=== PATIENT | female | born 1950 | race Two or more races ===

== ENCOUNTER 2018-11-19 08:39 | Inpatient (IN) | payer OTHER ==
[2018-11-19 09:41] VITALS: BMI 37.0
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
[2018-11-19] MEDS ORDERED: METHOCARBAMOL 500 MG TABLET PO PRN (10:21)
[2018-11-19] MEDS ORDERED: hydrOXYzine PAMOATE 25 MG CAPSULE (FP) PO PRN (10:21)
[2018-11-19] MEDS ORDERED: MELATONIN 5 MG TABLETS PO PRN (10:21)
[2018-11-19] MEDS ORDERED: IBUPROFEN 400 MG TABLET (FP) PO PRN (10:21)
[2018-11-19] MEDS ORDERED: MAGNESIUM CITRATE 300 ML BOTTLE PO PRN (10:21)
[2018-11-19] MEDS ORDERED: ACETAMINOPHEN 325 MG TABLET (FP) PO PRN ×2 (10:21)
[2018-11-19] MEDS ORDERED: chlordiazePOXIDE HCL 25 MG CAPSULE PO PRN (10:21)
[2018-11-19] MEDS ORDERED: MAG HYDROX/AL HYDROX/SIMETH 30 ML UNIT-DOSE CUP PO PRN (10:21)
[2018-11-19] MEDS ORDERED: MENTHOL/PHENOL 1 EACH UD MM PRN (10:21)
[2018-11-19] MEDS ORDERED: ONDANSETRON *ODT* 4 MG TABLET SL PRN (10:21)
[2018-11-19] MEDS ORDERED: BISMUTH SUBSALICYLATE 524 MG/30 ML UD PO PRN (10:21)
[2018-11-19] MEDS ORDERED: MAGNESIUM HYDROX 2400MG/30ML ORAL SUSPENSION 30 ML CUP PO PRN (10:21)
[2018-11-19] MEDS ORDERED: chlordiazePOXIDE HCL 25 MG CAPSULE PO ONE (13:15)
[2018-11-19] MEDS: NICOTINE 21 MG/24 HOURS TOPICAL PATCH TD SCH (13:38)
[2018-11-19] MEDS: BUDESONIDE/FORMETEROL FUMARATE 80/4.5 mcg INHALER IH SCH ×2 (13:39→23:14)
[2018-11-19] MEDS: LIDOCAINE 5% TOPICAL PATCH TP SCH (13:44)
[2018-11-19] MEDS ORDERED: cloNIDine HCL 0.1 MG TABLET PO ONE (14:14)
[2018-11-19 14:20] LABS: HEMATOCRIT 49.7 % (32.4-45.2); HEMOGLOBIN 16.3 GM/dL (10.7-15.3); MCH 28.3 pg (25.7-33.7); MCHC 32.7 g/dl (32.0-36.0); MEAN CELL VOLUME 86.6 fl (80-96); MEAN PLT VOLUME 8.8 fl (7.5-11.1); PLATELET COUNT 200 K/MM3 (134-434); RBC 5.74 M/mm3 (3.60-5.2); RDW 16.1 % (11.6-15.6); WHITE BLOOD COUNT 7.7 K/mm3 (4.0-10.0)
[2018-11-19 14:39] LABS: ALBUMIN 3.6 g/dl (3.4-5.0); BILIRUBIN,TOTAL 3.2 mg/dL (0.2-1); BLOOD UREA NITROGEN 6.9 mg/dL (7-18); CALCIUM 8.8 mg/dL (8.5-10.1)
[2018-11-19] MEDS: chlordiazePOXIDE HCL 25 MG CAPSULE PO SCH ×2 (17:38→22:53)
[2018-11-19] MEDS: THIAMINE HCL 100 MG TABLET (FP) PO SCH (22:53)
[2018-11-19] MEDS: LIDOCAINE PATCH REMOVAL MC SCH (23:14)
[2018-11-20] MEDS: chlordiazePOXIDE HCL 25 MG CAPSULE PO SCH ×4 (06:08→22:28)
[2018-11-20] MEDS: LIDOCAINE 5% TOPICAL PATCH TP SCH (10:56)
[2018-11-20] MEDS: BUDESONIDE/FORMETEROL FUMARATE 80/4.5 mcg INHALER IH SCH ×2 (10:57→22:31)
[2018-11-20] MEDS: PRENATAL VITAMINS W/ FOLIC ACID TABLET (FP) PO SCH (10:57)
[2018-11-20] MEDS: LISINOPRIL 5 MG TABLET (FP) PO SCH (10:57)
[2018-11-20] MEDS: NICOTINE 21 MG/24 HOURS TOPICAL PATCH TD SCH (10:57)
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
[2018-11-20] MEDS ORDERED: PARoxetine HCL 30 MG TABLET PO SCH (12:45)
[2018-11-20] MEDS ORDERED: hydrOXYzine PAMOATE 50 MG CAPSULE (FP) PO PRN (12:46)
--- NOTE | 2018-11-20 17:13 | PN ---
[facility] CIWA - CIWA Score Nausea/Vomitin-Mild Nausea/No Vomiting Muscle Tremors: 4-Moderate,w/Arms Extend Anxiety: 4-Mod. Anxious/Guarded Agitation: 3 Paroxysmal Sweats: 3 Orientation: 0-Oriented Tacttile Disturbances: 0-None Auditory Disturbances: 0-None Visual Disturbances: 0-None Headache: 0-None Present CIWA-Ar Total Score: 15 S Progress Note (SOAP) Subjective: Refused to speak with financial writer Objective: 11/20/18 17:09 Last Vital Signs Temp Pulse Resp BP Pulse Ox 97.7 F 90 18 161/96 11/20/18 16:59 11/20/18 16:59 11/20/18 16:59 11/20/18 16:59 Elevated b/p (has htn, on medication) Laboratory Tests 11/19/18 11/19/18 11/19/18 10:30 10:30 10:30 WBC RBC Hgb Hct MCV MCH MCHC RDW Plt Count MPV Sickle Cell Screen Negative Sodium 138 Potassium 3.0 L Chloride 97 L Carbon Dioxide 34 H Anion Gap 7 L BUN 6.9 L Creatinine 1.0 Est GFR (CKD-EPI)AfAm 67.99 Est GFR (CKD-EPI)NonAf 58.66 Random Glucose 133 H Calcium 8.8 Total Bilirubin 3.2 H AST 31 ALT 23 Alkaline Phosphatase 121 H Total Protein 7.0 Albumin 3.6 RPR Titer Nonreactive 11/19/18 10:35 WBC 7.7 RBC 5.74 H Hgb 16.3 H Hct 49.7 H MCV 86.6 MCH 28.3 MCHC 32.7 RDW 16.1 H Plt Count 200 MPV 8.8 Sickle Cell Screen Sodium Potassium Chloride Carbon Dioxide Anion Gap BUN Creatinine Est GFR (CKD-EPI)AfAm Est GFR (CKD-EPI)NonAf Random Glucose Calcium Total Bilirubin AST ALT Alkaline Phosphatase Total Protein Albumin RPR Titer Labs reviewed: K 3, serum gluc 133, total bili 3.2 (high), alk phos 121 ( elevated), CBC abnormal (RBC, H/H all high) Assessment: 11/20/18 17:12 Withdrawal sxs Noted with hypokalemia, hyperglycemia, elevated LFTs (total bilirubin and alk phos) and abnormal CBC Plan: Continue detox Encouraged PO water intake Hypokalemia: start K Dur 40 Meq PO x 2 doses (at least 4 hours apart then 20 Meq PO daily, repeat serum K level in AM) Hyperglycemia: repeat fasting glucose, send A1c Elevated LFTs (total bilirubin and alk phos): repeat total bilirubin and alk phos Abnormal CBC: repeat CBC
--- NOTE | 2018-11-20 17:16 | EKG ---
Test Reason : Blood Pressure : / mmHG Vent. Rate : 087 BPM Atrial Rate : 087 BPM P-R Int : 132 ms QRS Dur : 098 ms QT Int : 390 ms P-R-T Axes : -22 068 048 degrees QTc Int : 469 ms NORMAL SINUS RHYTHM NORMAL ECG NO PREVIOUS ECGS AVAILABLE Confirmed by LEEANN PEOPLES MD ([id number]) on 11/20/2018 5:16:19 PM Referred By: Confirmed By:LEEANN PEOPLES MD
[2018-11-20] MEDS ORDERED: POTASSIUM CHLORIDE TABS 20 MEQ TABLET.ER (FP) PO ONE ×2 (17:17→23:00)
[2018-11-20] MEDS: PARoxetine HCL 20 MG TABLET PO SCH (22:28)
[2018-11-20] MEDS: THIAMINE HCL 100 MG TABLET (FP) PO SCH (22:29)
[2018-11-20] MEDS: LIDOCAINE PATCH REMOVAL MC SCH (22:31)
[2018-11-21] MEDS: SUVOREXANT 10 MG TABLET PO PRN ×2 (01:12→22:17)
[2018-11-21] MEDS: chlordiazePOXIDE HCL 25 MG CAPSULE PO SCH ×4 (06:41→22:17)
[2018-11-21] MEDS: NICOTINE 21 MG/24 HOURS TOPICAL PATCH TD SCH (10:57)
[2018-11-21] MEDS: LISINOPRIL 5 MG TABLET (FP) PO SCH (10:58)
[2018-11-21] MEDS: POTASSIUM CHLORIDE TABS 20 MEQ TABLET.ER (FP) PO SCH (10:58)
[2018-11-21] MEDS: BUDESONIDE/FORMETEROL FUMARATE 80/4.5 mcg INHALER IH SCH ×2 (10:58→22:19)
[2018-11-21] MEDS: PRENATAL VITAMINS W/ FOLIC ACID TABLET (FP) PO SCH (10:58)
[2018-11-21] MEDS: LIDOCAINE 5% TOPICAL PATCH TP SCH (11:02)
--- NOTE | 2018-11-21 12:32 | PN ---
S CIWA - CIWA Score Nausea/Vomitin-No Nausea/No Vomiting Muscle Tremors: 4-Moderate,w/Arms Extend Anxiety: 3 Agitation: 3 Paroxysmal Sweats: 3 Orientation: 0-Oriented Tacttile Disturbances: 0-None Auditory Disturbances: 0-None Visual Disturbances: 0-None Headache: 0-None Present CIWA-Ar Total Score: 13 [facility] Progress Note (SOAP) Subjective: sweats irritable tired Objective: 11/21/18 12:31 Vital Signs Temperature 97.5 F L 11/21/18 09:45 Pulse Rate 72 11/21/18 09:45 Respiratory Rate 18 11/21/18 09:45 Blood Pressure 139/78 11/21/18 09:45 O2 Sat by Pulse Oximetry (%) Laboratory Tests 11/19/18 11/19/18 11/19/18 10:30 10:30 10:30 WBC RBC Hgb Hct MCV MCH MCHC RDW Plt Count MPV Sickle Cell Screen Negative Sodium 138 Potassium 3.0 L Chloride 97 L Carbon Dioxide 34 H Anion Gap 7 L BUN 6.9 L Creatinine 1.0 Est GFR (CKD-EPI)AfAm 67.99 Est GFR (CKD-EPI)NonAf 58.66 Random Glucose 133 H Calcium 8.8 Total Bilirubin 3.2 H AST 31 ALT 23 Alkaline Phosphatase 121 H Total Protein 7.0 Albumin 3.6 RPR Titer Nonreactive 11/19/18 10:35 WBC 7.7 RBC 5.74 H Hgb 16.3 H Hct 49.7 H MCV 86.6 MCH 28.3 MCHC 32.7 RDW 16.1 H Plt Count 200 MPV 8.8 Sickle Cell Screen Sodium Potassium Chloride Carbon Dioxide Anion Gap BUN Creatinine Est GFR (CKD-EPI)AfAm Est GFR (CKD-EPI)NonAf Random Glucose Calcium Total Bilirubin AST ALT Alkaline Phosphatase Total Protein Albumin RPR Titer repeated labs pending aaox3 ambulating no acute distress Assessment: 11/21/18 12:32 withdrawal sx Plan: continue detox increase fluids pending labs
[2018-11-21 12:50] LABS: BASO % 0.6 % (0-2.0); EOS % 1.8 % (0-4.5); HEMATOCRIT 46.2 % (32.4-45.2); HEMOGLOBIN 14.6 GM/dL (10.7-15.3); LYMPH % 30.6 % (8-40); MCH 27.8 pg (25.7-33.7); MCHC 31.6 g/dl (32.0-36.0); MEAN CELL VOLUME 87.9 fl (80-96); MONO % 6.3 % (3.8-10.2); NEUT % 60.7 % (42.8-82.8); PLATELET COUNT 145 K/MM3 (134-434); RBC 5.25 M/mm3 (3.60-5.2); RDW 16.2 % (11.6-15.6); WHITE BLOOD COUNT 7.4 K/mm3 (4.0-10.0)
[2018-11-21 12:55] LABS: BILIRUBIN,TOTAL 0.9 mg/dL (0.2-1); POTASSIUM 3.7 mmol/L (3.5-5.1)
[2018-11-21] MEDS: PARoxetine HCL 20 MG TABLET PO SCH (22:17)
[2018-11-21] MEDS: THIAMINE HCL 100 MG TABLET (FP) PO SCH (22:17)
[2018-11-21] MEDS: LIDOCAINE PATCH REMOVAL MC SCH (22:19)
[2018-11-22] MEDS ORDERED: chlordiazePOXIDE HCL 10 MG CAPSULE PO PRN
[2018-11-22] MEDS: chlordiazePOXIDE HCL 10 MG CAPSULE PO SCH ×4 (06:07→22:07)
[2018-11-22] MEDS: POTASSIUM CHLORIDE TABS 20 MEQ TABLET.ER (FP) PO SCH (10:16)
[2018-11-22] MEDS: BUDESONIDE/FORMETEROL FUMARATE 80/4.5 mcg INHALER IH SCH ×2 (10:17→22:08)
[2018-11-22] MEDS: PRENATAL VITAMINS W/ FOLIC ACID TABLET (FP) PO SCH (10:17)
[2018-11-22] MEDS: LISINOPRIL 5 MG TABLET (FP) PO SCH (10:17)
[2018-11-22] MEDS: LIDOCAINE 5% TOPICAL PATCH TP SCH (10:17)
[2018-11-22] MEDS: NICOTINE 21 MG/24 HOURS TOPICAL PATCH TD SCH (10:17)
--- NOTE | 2018-11-22 11:31 | PN ---
S CIWA - CIWA Score Nausea/Vomitin-No Nausea/No Vomiting Muscle Tremors: 2 Anxiety: 2 Agitation: 2 Paroxysmal Sweats: 2 Orientation: 0-Oriented Tacttile Disturbances: 0-None Auditory Disturbances: 0-None Visual Disturbances: 0-None Headache: 0-None Present CIWA-Ar Total Score: 8 [facility] Progress Note (SOAP) Subjective: sweats tired little anxiety Objective: 11/22/18 11:30 Vital Signs Temperature 98.1 F 11/22/18 09:51 Pulse Rate 81 11/22/18 09:51 Respiratory Rate 16 11/22/18 09:51 Blood Pressure 140/98 11/22/18 09:51 O2 Sat by Pulse Oximetry (%) aaox3 ambulating no acute distress Assessment: 11/22/18 11:31 mild withdrawals Plan: continue detox increase fluids
[2018-11-22] MEDS: THIAMINE HCL 100 MG TABLET (FP) PO SCH (22:07)
[2018-11-22] MEDS: LIDOCAINE PATCH REMOVAL MC SCH (22:07)
[2018-11-22] MEDS: PARoxetine HCL 20 MG TABLET PO SCH (22:07)
[2018-11-22] MEDS: SUVOREXANT 10 MG TABLET PO PRN (22:09)
[2018-11-23] MEDS: chlordiazePOXIDE HCL 10 MG CAPSULE PO SCH ×2 (06:51→17:38)
[2018-11-23] MEDS: NICOTINE 21 MG/24 HOURS TOPICAL PATCH TD SCH (10:40)
[2018-11-23] MEDS: PRENATAL VITAMINS W/ FOLIC ACID TABLET (FP) PO SCH (10:40)
[2018-11-23] MEDS: POTASSIUM CHLORIDE TABS 20 MEQ TABLET.ER (FP) PO SCH (10:40)
[2018-11-23] MEDS: LIDOCAINE 5% TOPICAL PATCH TP SCH (10:40)
[2018-11-23] MEDS: BUDESONIDE/FORMETEROL FUMARATE 80/4.5 mcg INHALER IH SCH ×2 (10:40→21:53)
[2018-11-23] MEDS: LISINOPRIL 5 MG TABLET (FP) PO SCH (10:40)
--- NOTE | 2018-11-23 11:08 | PN ---
S CIWA - CIWA Score Nausea/Vomitin-No Nausea/No Vomiting Muscle Tremors: 2 Anxiety: 1-Mildly Anxious Agitation: 1-Slight > Activity Paroxysmal Sweats: No Perspiration Orientation: 0-Oriented Tacttile Disturbances: 0-None Auditory Disturbances: 0-None Visual Disturbances: 0-None Headache: 0-None Present CIWA-Ar Total Score: 4 [facility] Progress Note (SOAP) Subjective: my eye is sticky/red and itchy anxiety Objective: 11/23/18 10:58 Vital Signs Temperature 96.3 F L 11/23/18 09:42 Pulse Rate 89 11/23/18 09:42 Respiratory Rate 18 11/23/18 09:42 Blood Pressure 140/85 11/23/18 09:42 O2 Sat by Pulse Oximetry (%) aaox3 ambulating no acute distress Assessment: 11/23/18 10:59 mild withdrawal sx both eyes were assesses; some redness noted, no discharge noted. visine drops ordered. Plan: d/c in am
[2018-11-23] MEDS: NAPHAZOLINE/PHENIRAMINE OPHTHALMIC 15 ML BOTTLE OU PRN ×2 (12:25→21:52)
[2018-11-23] MEDS: PARoxetine HCL 20 MG TABLET PO SCH (21:51)
[2018-11-23] MEDS: THIAMINE HCL 100 MG TABLET (FP) PO SCH (21:51)
[2018-11-23] MEDS: LIDOCAINE PATCH REMOVAL MC SCH (21:54)
[2018-11-24] MEDS ORDERED: chlordiazePOXIDE HCL 10 MG CAPSULE PO ONE (05:00)
[2018-11-24 09:35] VITALS: BP 137/76; PULSE 86; TEMP 96.6
--- NOTE | 2018-11-24 10:05 | DS ---
[facility] Detox Discharge Summary Admission Date: 11/19/18 Discharge Date: 11/24/18 - History Present History: Alcohol Dependence - Physical Exam Results Vital Signs: Vital Signs Temperature 96.6 F L 11/24/18 09:34 Pulse Rate 86 11/24/18 09:34 Respiratory Rate 18 11/24/18 09:34 Blood Pressure 137/76 11/24/18 09:34 O2 Sat by Pulse Oximetry (%) Pertinent Admission Physical Exam Findings: pt arrived in [facility] Laboratory Tests 11/19/18 11/19/18 11/19/18 10:30 10:30 10:30 WBC RBC Hgb Hct MCV MCH MCHC RDW Plt Count MPV Absolute Neuts (auto) Neutrophils % Lymphocytes % Monocytes % Eosinophils % Basophils % Nucleated RBC % Sickle Cell Screen Negative Sodium 138 Potassium 3.0 L Chloride 97 L Carbon Dioxide 34 H Anion Gap 7 L BUN 6.9 L Creatinine 1.0 Est GFR (CKD-EPI)AfAm 67.99 Est GFR (CKD-EPI)NonAf 58.66 Random Glucose 133 H Hemoglobin A1c % Calcium 8.8 Total Bilirubin 3.2 H AST 31 ALT 23 Alkaline Phosphatase 121 H Total Protein 7.0 Albumin 3.6 RPR Titer Nonreactive 11/19/18 11/21/18 11/21/18 10:35 09:00 09:00 WBC 7.7 7.4 RBC 5.74 H 5.25 H Hgb 16.3 H 14.6 Hct 49.7 H 46.2 H MCV 86.6 87.9 MCH 28.3 27.8 MCHC 32.7 31.6 L RDW 16.1 H 16.2 H Plt Count 200 145 D MPV 8.8 9.0 Absolute Neuts (auto) 4.5 Neutrophils % 60.7 Lymphocytes % 30.6 Monocytes % 6.3 Eosinophils % 1.8 Basophils % 0.6 Nucleated RBC % 0 Sickle Cell Screen Sodium Potassium 3.7 Chloride Carbon Dioxide Anion Gap BUN Creatinine Est GFR (CKD-EPI)AfAm Est GFR (CKD-EPI)NonAf Random Glucose Hemoglobin A1c % Calcium Total Bilirubin 0.9 D AST ALT Alkaline Phosphatase 95 Total Protein Albumin RPR Titer 11/21/18 09:00 WBC RBC Hgb Hct MCV MCH MCHC RDW Plt Count MPV Absolute Neuts (auto) Neutrophils % Lymphocytes % Monocytes % Eosinophils % Basophils % Nucleated RBC % Sickle Cell Screen Sodium Potassium Chloride Carbon Dioxide Anion Gap BUN Creatinine Est GFR (CKD-EPI)AfAm Est GFR (CKD-EPI)NonAf Random Glucose Hemoglobin A1c % 5.5 Calcium Total Bilirubin AST ALT Alkaline Phosphatase Total Protein Albumin RPR Titer today pt is aaox3 ambulating no acute distress no s/s of withdrawal sx - Treatment Hospital Course: Detox Protocol Followed, Detoxed Safely, Responded well, Discharged Condition Good, Rehab Referral Accepted Patient has Accepted a Rehab Referral to: pt declined rehab; referral provided - Medication Discharge Medications: Ambulatory Orders Fluticasone/Vilanterol [Breo Ellipta 100-25 Mcg INH] 1 each IH DAILY 11/19/18 Lisinopril 5 mg PO DAILY 11/19/18 Paroxetine HCl [Paxil -] 10 mg PO DAILY 11/19/18 Zolpidem Tartrate [Ambien] 10 mg PO HS 11/19/18 - Diagnosis (1) Alcohol-induced mood disorder Current Visit: Yes Status: Chronic (2) Alcohol-induced sleep disorder Current Visit: Yes Status: Chronic (3) HTN (hypertension) Current Visit: Yes Status: Chronic Qualifiers: Hypertension type: essential hypertension Qualified Code(s): I10 - Essential (primary) hypertension (4) Alcohol dependence with uncomplicated withdrawal Current Visit: Yes Status: Chronic (5) Benzodiazepine dependence Current Visit: Yes Status: Chronic (6) History of cancer of right breast Current Visit: Yes Status: Chronic (7) History of lobectomy of lung Current Visit: No Status: Chronic (8) History of lung cancer Current Visit: Yes Status: Chronic (9) MDD (major depressive disorder) Current Visit: Yes Status: Chronic (10) Nicotine dependence Current Visit: Yes Status: Chronic Qualifiers: Nicotine product type: cigarettes Substance use status: uncomplicated Qualified Code(s): F17.210 - Nicotine dependence, cigarettes, uncomplicated (11) PPD positive Current Visit: Yes Status: Chronic (12) Syncope Current Visit: Yes Status: Chronic Qualifiers: Syncope type: unspecified Qualified Code(s): R55 - Syncope and collapse - AMA Did Patient Leave Against Medical Advice: No
[2018-11-24] MEDS: NICOTINE 21 MG/24 HOURS TOPICAL PATCH TD SCH (10:47)
[2018-11-24] MEDS: LIDOCAINE 5% TOPICAL PATCH TP SCH (10:47)
[2018-11-24] MEDS: LISINOPRIL 5 MG TABLET (FP) PO SCH (10:47)
[2018-11-24] MEDS: BUDESONIDE/FORMETEROL FUMARATE 80/4.5 mcg INHALER IH SCH (10:47)
[2018-11-24] MEDS: POTASSIUM CHLORIDE TABS 20 MEQ TABLET.ER (FP) PO SCH (10:47)
[2018-11-24] MEDS: PRENATAL VITAMINS W/ FOLIC ACID TABLET (FP) PO SCH (10:48)
== END 2018-11-24 11:27 | disposition home or self-care (01) | DRG 897 ==
LOC: YASAS 08:39 → Y6N 12:59
PROVIDERS: ADMIT Surgery; ATTEND Surgery
PROC: HZ2ZZZZ Detoxification Services for Substance Abuse Treatment (ICD-10-PCS; principal; 2018-11-19)
DX: F10.230 Alcohol dependence with withdrawal, uncomplicated (principal); F13.20 Sedative, hypnotic or anxiolytic dependence, uncomplicated; F10.24 Alcohol dependence with alcohol-induced mood disorder; F10.282 Alcohol dependence with alcohol-induced sleep disorder; F11.10 Opioid abuse, uncomplicated; F17.210 Nicotine dependence, cigarettes, uncomplicated; F32.9 Major depressive disorder, single episode, unspecified; I10 Essential (primary) hypertension; R00.0 Tachycardia, unspecified; J45.909 Unspecified asthma, uncomplicated; R76.11 Nonspecific reaction to tuberculin skin test without active tuberculosis; H57.89 Other specified disorders of eye and adnexa; E87.6 Hypokalemia; R73.9 Hyperglycemia, unspecified; R94.5 Abnormal results of liver function studies; E66.9 Obesity, unspecified; Z68.37 Body mass index [BMI] 37.0-37.9, adult; Z85.3 Personal history of malignant neoplasm of breast; Z85.118 Personal history of other malignant neoplasm of bronchus and lung; Z92.21 Personal history of antineoplastic chemotherapy; Z92.3 Personal history of irradiation; Z90.710 Acquired absence of both cervix and uterus; Z90.2 Acquired absence of lung [part of]
CPT/HCPCS: 36415; 71046-TC-FY; 80053; 82247; 83036; 84075; 84132; 85025; 85027; 85660; 86593; 93005; 93010; J0735

== ENCOUNTER 2019-02-13 18:18 | Inpatient (IN) | payer OTHER ==
[2019-02-13 20:12] VITALS: BMI 33.2
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
[2019-02-14] MEDS ORDERED: MAGNESIUM HYDROX 2400MG/30ML ORAL SUSPENSION 30 ML CUP PO PRN (08:18)
[2019-02-14] MEDS ORDERED: MENTHOL/PHENOL 1 EACH UD MM PRN (08:18)
[2019-02-14] MEDS ORDERED: ACETAMINOPHEN 325 MG TABLET (FP) PO PRN ×2 (08:18)
[2019-02-14] MEDS ORDERED: hydrOXYzine PAMOATE 25 MG CAPSULE (FP) PO PRN (08:18)
[2019-02-14] MEDS ORDERED: IBUPROFEN 400 MG TABLET (FP) PO PRN (08:18)
[2019-02-14] MEDS ORDERED: MAG HYDROX/AL HYDROX/SIMETH 30 ML UNIT-DOSE CUP PO PRN (08:18)
[2019-02-14] MEDS ORDERED: BISMUTH SUBSALICYLATE 262 MG/15 ML BTL PO PRN (08:18)
[2019-02-14] MEDS ORDERED: MAGNESIUM CITRATE 300 ML BOTTLE PO PRN (08:18)
[2019-02-14] MEDS ORDERED: ALBUTEROL SO4 0.083% IH SOL 2.5 MG/3 ML VIAL.NEB. NEB PRN (08:20)
[2019-02-14] MEDS: PRENATAL VITAMINS W/ FOLIC ACID TABLET (FP) PO SCH (10:16)
[2019-02-14] MEDS: chlordiazePOXIDE HCL 25 MG CAPSULE PO SCH ×3 (10:16→22:15)
[2019-02-14] MEDS: BUDESONIDE/FORMETEROL FUMARATE 80/4.5 mcg INHALER IH SCH ×2 (11:08→22:15)
--- NOTE | 2019-02-14 11:12 | PN ---
S CIWA - CIWA Score Nausea/Vomitin-Mild Nausea/No Vomiting Muscle Tremors: 2 Anxiety: 4-Mod. Anxious/Guarded Agitation: 3 Paroxysmal Sweats: 2 Orientation: 0-Oriented Tacttile Disturbances: 1-Very Mild Itch/Numbness Auditory Disturbances: 1-Very Mild Visual Disturbances: 0-None Headache: 1-Very Mild CIWA-Ar Total Score: 15 [facility] Progress Note (SOAP) Subjective: 68 years old female admitted on 02/13/19 for alcohol withdrawal sx management treated with librium detox regimen return from ER feeling tired reported depression denies suicidal ideation taking paxil with good effect psychiatrist referral in placed verbal report provided to the psychiatrist on duty Objective: 02/14/19 11:15 Vital Signs Temperature 98.3 F 02/14/19 09:20 Pulse Rate 75 02/14/19 09:20 Respiratory Rate 18 02/14/19 09:20 Blood Pressure 143/81 02/14/19 09:20 O2 Sat by Pulse Oximetry (%) 02/14/19 11:15 lab see 11/2018 result Assessment: 02/14/19 11:16 alcohol withdrawal sx Plan: continue librium detox regimen
--- NOTE | 2019-02-14 17:52 | CONSULT ---
[facility] Psychiatric Consult - Data Date of interview: 02/14/19 Admission source: [facility] Identifying data: Patient was approached earlier during the day for psychiatric interview (medical students in attendance). Ms Chavira declined. " Too tired to talk to psychiatrist ". Nursing staff is made aware. Request for reconsult to be entered if needed.
[2019-02-14] MEDS ORDERED: guaiFENesin 200 MG/10 ML 10 ML UNIT-DOSE CUPS PO PRN (18:02)
[2019-02-14 18:16] LABS: HEMATOCRIT 47.1 % (32.4-45.2); HEMOGLOBIN 15.1 GM/dL (10.7-15.3); MCH 29.2 pg (25.7-33.7); MCHC 32.1 g/dl (32.0-36.0); PLATELET COUNT 167 K/MM3 (134-434); RBC 5.18 M/mm3 (3.60-5.2); RDW 16.4 % (11.6-15.6); WHITE BLOOD COUNT 8.3 K/mm3 (4.0-10.0)
[2019-02-14] MEDS: THIAMINE HCL 100 MG TABLET (FP) PO SCH (22:15)
[2019-02-14] MEDS: MELATONIN 5 MG TABLETS PO PRN (22:15)
[2019-02-15] MEDS: chlordiazePOXIDE HCL 25 MG CAPSULE PO SCH ×4 (06:01→22:07)
--- NOTE | 2019-02-15 09:13 | PN ---
S CIWA - CIWA Score Nausea/Vomitin-Mild Nausea/No Vomiting Muscle Tremors: 1-None Visible, but [place] Anxiety: 3 Agitation: 1-Slight > Activity Paroxysmal Sweats: 2 Orientation: 0-Oriented Tacttile Disturbances: 1-Very Mild Itch/Numbness Auditory Disturbances: 1-Very Mild Visual Disturbances: 0-None Headache: 1-Very Mild CIWA-Ar Total Score: 11 BHS Progress Note (SOAP) Subjective: 68 years old female admitted on 02/13/19 for alcohol withdrawal sx management treated with librium detox regimen patient tolerated well less tremor requests to be seen by a psychiatrist that she is taking paxil for years and did well with the paxil psychiatrist consultation Objective: 02/15/19 09:14 Vital Signs Temperature 97.8 F 02/15/19 06:09 Pulse Rate 82 02/15/19 06:09 Respiratory Rate 18 02/15/19 06:09 Blood Pressure 134/75 02/15/19 06:09 O2 Sat by Pulse Oximetry (%) Laboratory Last Values WBC 8.3 K/mm3 (4.0-10.0) 02/14/19 12:50 RBC 5.18 M/mm3 (3.60-5.2) 02/14/19 12:50 Hgb 15.1 GM/dL (10.7-15.3) 02/14/19 12:50 Hct 47.1 % (32.4-45.2) H 02/14/19 12:50 MCV 91.0 fl (80-96) 02/14/19 12:50 MCH 29.2 pg (25.7-33.7) 02/14/19 12:50 MCHC 32.1 g/dl (32.0-36.0) 02/14/19 12:50 RDW 16.4 % (11.6-15.6) H 02/14/19 12:50 Plt Count 167 K/MM3 (134-434) 02/14/19 12:50 MPV 9.0 fl (7.5-11.1) 02/14/19 12:50 lab noted Assessment: 02/15/19 09:15 alcohol withdrawal sx Plan: continue librium detox regimen
[2019-02-15] MEDS: PRENATAL VITAMINS W/ FOLIC ACID TABLET (FP) PO SCH (09:54)
[2019-02-15] MEDS: BUDESONIDE/FORMETEROL FUMARATE 80/4.5 mcg INHALER IH SCH ×2 (09:54→22:08)
[2019-02-15] MEDS: chlordiazePOXIDE HCL 25 MG CAPSULE PO PRN ×2 (09:56→20:48)
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
[2019-02-15] MEDS: THIAMINE HCL 100 MG TABLET (FP) PO SCH (22:07)
[2019-02-15] MEDS: MELATONIN 5 MG TABLETS PO PRN (22:08)
[2019-02-15] MEDS: VITAMINS A AND D TOPICAL OINTMENT 60 GM TUBE TP SCH (23:34)
[2019-02-16] MEDS: chlordiazePOXIDE HCL 25 MG CAPSULE PO SCH ×4 (05:46→22:15)
[2019-02-16] MEDS: VITAMINS A AND D TOPICAL OINTMENT 60 GM TUBE TP SCH ×3 (05:46→19:05)
[2019-02-16] MEDS: PRENATAL VITAMINS W/ FOLIC ACID TABLET (FP) PO SCH (10:31)
[2019-02-16] MEDS: PARoxetine HCL 20 MG TABLET PO SCH (10:31)
[2019-02-16] MEDS: BUDESONIDE/FORMETEROL FUMARATE 80/4.5 mcg INHALER IH SCH ×2 (10:32→22:15)
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
[2019-02-16] MEDS ORDERED: NICOTINE POLACRILEX 4 MG GUM BUC PRN (14:02)
[2019-02-16] MEDS: NICOTINE 21 MG/24 HOURS TOPICAL PATCH TD SCH (14:08)
[2019-02-16] MEDS ORDERED: cloNIDine HCL 0.1 MG TABLET PO ONE (20:27)
[2019-02-16] MEDS ORDERED: ALBUTEROL SO4 8 GM HFA INHALER IH PRN (20:27)
--- NOTE | 2019-02-16 20:28 | PN ---
[facility] Progress Note Note: Vital Signs Temperature 97.6 F 02/16/19 20:22 Pulse Rate 93 H 02/16/19 20:22 Respiratory Rate 18 02/16/19 20:22 Blood Pressure 171/102 H 02/16/19 20:22 O2 Sat by Pulse Oximetry (%) Patient currently on alcohol detox BOP elevated one time dose of clonidine 0.1mg repeat vital signs increase fluids continue detox continue to monitor
[2019-02-16] MEDS: THIAMINE HCL 100 MG TABLET (FP) PO SCH (22:15)
[2019-02-16] MEDS: MELATONIN 5 MG TABLETS PO PRN (22:15)
[2019-02-17] MEDS ORDERED: chlordiazePOXIDE HCL 10 MG CAPSULE PO PRN
[2019-02-17] MEDS: VITAMINS A AND D TOPICAL OINTMENT 60 GM TUBE TP SCH ×4 (00:30→17:43)
[2019-02-17] MEDS: chlordiazePOXIDE HCL 10 MG CAPSULE PO SCH ×4 (06:14→22:06)
[2019-02-17] MEDS: LISINOPRIL 20 MG TABLET (FP) PO SCH (10:55)
[2019-02-17] MEDS: PARoxetine HCL 20 MG TABLET PO SCH (10:55)
[2019-02-17] MEDS: NICOTINE 21 MG/24 HOURS TOPICAL PATCH TD SCH (10:55)
[2019-02-17] MEDS: PRENATAL VITAMINS W/ FOLIC ACID TABLET (FP) PO SCH (10:59)
[2019-02-17] MEDS: BUDESONIDE/FORMETEROL FUMARATE 80/4.5 mcg INHALER IH SCH ×2 (10:59→22:04)
--- NOTE | 2019-02-17 12:17 | PN ---
[facility] CIWA - CIWA Score Nausea/Vomitin-Mild Nausea/No Vomiting Muscle Tremors: 1-None Visible, but [place] Anxiety: 2 Agitation: 2 Paroxysmal Sweats: No Perspiration Orientation: 0-Oriented Tacttile Disturbances: 1-Very Mild Itch/Numbness Auditory Disturbances: 0-None Visual Disturbances: 0-None Headache: 1-Very Mild CIWA-Ar Total Score: 8 BHS Progress Note (SOAP) Subjective: alert,irritable,anxious,interrupted sleep Objective: 02/17/19 12:17 Vital Signs Temperature 98.3 F 02/17/19 09:23 Pulse Rate 65 02/17/19 09:23 Respiratory Rate 18 02/17/19 09:23 Blood Pressure 136/72 02/17/19 09:23 O2 Sat by Pulse Oximetry (%) Assessment: 02/17/19 12:17 withdrawal symptom Plan: continue detox librium regimen
[2019-02-17] MEDS: THIAMINE HCL 100 MG TABLET (FP) PO SCH (22:05)
[2019-02-17] MEDS: MELATONIN 5 MG TABLETS PO PRN (22:06)
[2019-02-18] MEDS: VITAMINS A AND D TOPICAL OINTMENT 60 GM TUBE TP SCH ×3 (01:09→11:17)
[2019-02-18] MEDS ORDERED: chlordiazePOXIDE HCL 10 MG CAPSULE PO SCH (05:00)
[2019-02-18 09:32] VITALS: BP 152/93; PULSE 89; TEMP 97
[2019-02-18] MEDS: PRENATAL VITAMINS W/ FOLIC ACID TABLET (FP) PO SCH (11:16)
[2019-02-18] MEDS: PARoxetine HCL 20 MG TABLET PO SCH (11:16)
[2019-02-18] MEDS: NICOTINE 21 MG/24 HOURS TOPICAL PATCH TD SCH (11:16)
[2019-02-18] MEDS: LISINOPRIL 20 MG TABLET (FP) PO SCH (11:17)
[2019-02-18] MEDS: BUDESONIDE/FORMETEROL FUMARATE 80/4.5 mcg INHALER IH SCH (11:17)
--- NOTE | 2019-02-18 15:33 | DS ---
[facility] Detox Discharge Summary Admission Date: 02/13/19 Discharge Date: 02/18/19 - History Present History: Alcohol Dependence Additional Comments: Pt is medically cleared and is discharge today. Pt completed the detox protocol. Pt is encouraged to follow-up with an outpatient chemical dependance program and also to follow-up with his pmd. Pt verbalized understanding. Pt is alert and oriented x3 and in no acute respiratory distress. Pertinent Past History: h/o HTN and alcohol use disorder. - Physical Exam Results Vital Signs: Vital Signs Temperature 97.0 F L 02/18/19 09:32 Pulse Rate 89 02/18/19 09:32 Respiratory Rate 18 02/18/19 09:32 Blood Pressure 152/93 02/18/19 09:32 O2 Sat by Pulse Oximetry (%) Pertinent Admission Physical Exam Findings: withdrawal symptoms. - Treatment Hospital Course: Detox Protocol Followed, Detoxed Safely, Responded well, Discharged Condition Good - Medication Discharge Medications: Ambulatory Orders Fluticasone/Vilanterol [Breo Ellipta 100-25 Mcg INH] 1 each IH DAILY 11/19/18 Lisinopril 5 mg PO DAILY 11/19/18 Paroxetine HCl [Paxil -] 10 mg PO DAILY 11/19/18 Zolpidem Tartrate [Ambien] 10 mg PO HS 11/19/18 - Diagnosis (1) Alcohol dependence with uncomplicated withdrawal Status: Acute (2) COPD (chronic obstructive pulmonary disease) Status: Acute Qualifiers: Chronic bronchitis type: unspecified (3) HTN (hypertension) Status: Chronic Qualifiers: Hypertension type: essential hypertension Qualified Code(s): I10 - Essential (primary) hypertension (4) History of cancer of right breast Status: Chronic (5) History of lobectomy of lung Status: Chronic (6) History of lung cancer Status: Chronic (7) Nicotine dependence Status: Chronic Qualifiers: (8) PPD positive Status: Chronic (9) Syncope Status: Chronic Qualifiers: Syncope type: unspecified Qualified Code(s): R55 - Syncope and collapse - AMA Did Patient Leave Against Medical Advice: No
[2019-02-19] MEDS ORDERED: chlordiazePOXIDE HCL 10 MG CAPSULE PO ONE (05:00)
== END 2019-02-18 09:59 | disposition home or self-care (01) | DRG 897 ==
LOC: YASAS 18:18 → Y3N 22:36
PROVIDERS: ADMIT Allergy & Immunology; ATTEND Allergy & Immunology
PROC: HZ2ZZZZ Detoxification Services for Substance Abuse Treatment (ICD-10-PCS; principal; 2019-02-13)
DX: F10.230 Alcohol dependence with withdrawal, uncomplicated (principal); F13.20 Sedative, hypnotic or anxiolytic dependence, uncomplicated; J44.1 Chronic obstructive pulmonary disease with (acute) exacerbation; F17.210 Nicotine dependence, cigarettes, uncomplicated; F10.24 Alcohol dependence with alcohol-induced mood disorder; F32.9 Major depressive disorder, single episode, unspecified; I10 Essential (primary) hypertension; R55 Syncope and collapse; R76.11 Nonspecific reaction to tuberculin skin test without active tuberculosis; Z90.710 Acquired absence of both cervix and uterus; Z85.3 Personal history of malignant neoplasm of breast; Z85.118 Personal history of other malignant neoplasm of bronchus and lung; Z90.2 Acquired absence of lung [part of]; Z91.013 Allergy to seafood; Z90.49 Acquired absence of other specified parts of digestive tract; S69.82XA Other specified injuries of left wrist, hand and finger(s), initial encounter; S59.811A Other specified injuries right forearm, initial encounter; Y00.XXXA Assault by blunt object, initial encounter; Y93.89 Activity, other specified; Y92.038 Other place in apartment as the place of occurrence of the external cause; Y99.8 Other external cause status; Y07.59 Other non-family member, perpetrator of maltreatment and neglect; Z59.2 Discord with neighbors, lodgers and landlord
CPT/HCPCS: 36415; 85027; 94640; J0735

== ENCOUNTER 2019-02-13 23:17 | Emergency (ER) | payer OTHER ==
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
[2019-02-14 00:26] VITALS: TEMP 98.7; BMI 73.2
[2019-02-14] MEDS ORDERED: ALBUTEROL SO4 2.5/IPRATROPIUM 0.5 INH SOL 3 ML VIAL.NEB. NEB ONE ×2 (00:39→01:37)
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
[2019-02-14] MEDS ORDERED: chlordiazePOXIDE HCL 25 MG CAPSULE PO ONE (01:44)
[2019-02-14] MEDS ORDERED: chlordiazePOXIDE HCL 10 MG CAPSULE ONE (02:18)
[2019-02-14] MEDS ORDERED: chlordiazePOXIDE 5 MG CAPSULE ONE (02:19)
[2019-02-14 02:33] LABS: ALBUMIN 3.4 g/dl (3.4-5.0); BILIRUBIN,TOTAL 2.8 mg/dL (0.2-1); BLOOD UREA NITROGEN 9.7 mg/dL (7-18); CALCIUM 9.5 mg/dL (8.5-10.1); CREATININE 0.8 mg/dL (0.55-1.3); POTASSIUM 3.6 mmol/L (3.5-5.1); TOT PROT 6.9 g/dl (6.4-8.2)
[2019-02-14] MEDS ORDERED: LISINOPRIL 5 MG TABLET (FP) PO ONE (04:39)
[2019-02-14] MEDS ORDERED: LISINOPRIL 5 MG TABLET (FP) ONE (04:41)
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
[2019-02-14] MEDS ORDERED: cloNIDine HCL 0.1 MG TABLET PO ONE (05:50)
[2019-02-14] MEDS ORDERED: cloNIDine HCL 0.1 MG TABLET ONE (05:50)
[2019-02-14 06:59] VITALS: BP 149/79; PULSE 83
== END 2019-02-14 07:39 | disposition home or self-care (01) ==
LOC: JER 23:17
PROC: 3E0F7GC Introduction of Other Therapeutic Substance into Respiratory Tract, Via Natural or Artificial Opening (ICD-10-PCS; principal; 2019-02-13)
PROC: 3E033NZ Introduction of Analgesics, Hypnotics, Sedatives into Peripheral Vein, Percutaneous Approach (ICD-10-PCS; 2019-02-13)
DX: S49.92XA Unspecified injury of left shoulder and upper arm, initial encounter (principal); W22.8XXA Striking against or struck by other objects, initial encounter; Y93.89 Activity, other specified; Y92.89 Other specified places as the place of occurrence of the external cause; F10.20 Alcohol dependence, uncomplicated; Z91.013 Allergy to seafood; E78.5 Hyperlipidemia, unspecified; J44.9 Chronic obstructive pulmonary disease, unspecified; Z85.3 Personal history of malignant neoplasm of breast; Z85.118 Personal history of other malignant neoplasm of bronchus and lung
CPT/HCPCS: 36415; 73090-TC-LT-FY; 73090-TC-RT-FY; 73110-TC-LT-FY; 73110-TC-RT-FY; 80053; 94640; 96374; 99282-25; J0735

== ENCOUNTER 2021-07-21 15:33 | Inpatient (IN) | payer OTHER ==
[2021-07-21 18:30] VITALS: BMI 35.9
[2021-07-21] MEDS ORDERED: ONDANSETRON *ODT* 4 MG TABLET SL PRN (19:35)
[2021-07-21] MEDS ORDERED: DICYCLOMINE HCL 10 MG CAPSULE PO PRN (19:35)
[2021-07-21] MEDS ORDERED: LOPERAMIDE HCL 2 MG CAPSULE PO PRN (19:35)
[2021-07-21] MEDS ORDERED: MAG HYDROX/AL HYDROX/SIMETH 30 ML UNIT-DOSE CUP PO PRN (19:35)
[2021-07-21] MEDS ORDERED: BENZOCAINE/MENTHOL (CHLORASEPTIC ) LOZENGE MM PRN (19:35)
[2021-07-21] MEDS ORDERED: MAGNESIUM CITRATE 300 ML BOTTLE PO PRN (19:35)
[2021-07-21] MEDS ORDERED: MAGNESIUM HYDROX 2400MG/30ML ORAL SUSPENSION 30 ML CUP PO PRN (19:35)
[2021-07-21] MEDS ORDERED: BISMUTH SUBSALICYLATE 524 MG/30 ML PO PRN (19:35)
[2021-07-21] MEDS ORDERED: ACETAMINOPHEN 325 MG TABLET (FP) PO PRN ×2 (19:35)
[2021-07-21] MEDS ORDERED: chlordiazePOXIDE HCL 25 MG CAPSULE PO PRN (19:38)
[2021-07-21] MEDS ORDERED: ALBUTEROL SO4 2.5/IPRATROPIUM 0.5 INH SOL 3 ML VIAL.NEB. NEB PRN (19:38)
[2021-07-21] MEDS ORDERED: chlordiazePOXIDE HCL 25 MG CAPSULE ONE (20:00)
[2021-07-21] MEDS ORDERED: chlordiazePOXIDE HCL 25 MG CAPSULE PO ONE (20:00)
[2021-07-21] MEDS: MELATONIN 5 MG TABLETS PO PRN (23:35)
[2021-07-21] MEDS: chlordiazePOXIDE HCL 25 MG CAPSULE PO SCH (23:35)
[2021-07-21] MEDS: THIAMINE HCL 100 MG TABLET (FP) PO SCH (23:35)
[2021-07-21] MEDS: hydrOXYzine PAMOATE 25 MG CAPSULE (FP) PO PRN (23:35)
[2021-07-21] MEDS ORDERED: ALBUTEROL SO4 HFA INHALER IH PRN (23:46)
[2021-07-22] MEDS: AMOX TR/POT CLAV 875MG/125MG TABLETS (FP) PO SCH ×3 (01:26→22:46)
[2021-07-22] MEDS: chlordiazePOXIDE HCL 25 MG CAPSULE PO SCH ×4 (06:23→22:46)
[2021-07-22] MEDS ORDERED: LISINOPRIL 5 MG TABLET PO SCH ×2 (06:30→10:00)
[2021-07-22] MEDS: PRENATAL VITAMINS W/ FOLIC ACID TABLET (FP) PO SCH (10:42)
[2021-07-22 11:28] LABS: HEMATOCRIT 48.5 % (32.4-45.2); HEMOGLOBIN 15.7 GM/dL (10.7-15.3); MCHC 32.5 g/dl (32.0-36.0); MEAN CELL VOLUME 95.5 fl (80-96); MEAN PLT VOLUME 8.9 fl (7.5-11.1); PLATELET COUNT 143 10^3/uL (134-434); RBC 5.08 M/mm3 (3.60-5.2); WHITE BLOOD COUNT 7.6 K/mm3 (4.0-10.0)
[2021-07-22 12:03] LABS: CALCIUM 10.1 mg/dL (8.5-10.1)
[2021-07-22 12:04] LABS: BLOOD UREA NITROGEN 17.2 mg/dL (7-18)
[2021-07-22 12:06] LABS: ALBUMIN 3.1 g/dl (3.4-5.0)
[2021-07-22 12:09] LABS: BILIRUBIN,TOTAL 1.9 mg/dL (0.2-1); TOT PROT 6.2 g/dl (6.4-8.2)
[2021-07-22] MEDS ORDERED: LISINOPRIL 5 MG TABLET PO ONE (14:00)
[2021-07-22] MEDS ORDERED: chlordiazePOXIDE HCL 25 MG CAPSULE PO ONE (14:15)
[2021-07-22] MEDS: hydrOXYzine PAMOATE 25 MG CAPSULE (FP) PO PRN ×2 (17:54→22:45)
[2021-07-22] MEDS: MELATONIN 5 MG TABLETS PO PRN (22:45)
[2021-07-22] MEDS: THIAMINE HCL 100 MG TABLET (FP) PO SCH (22:45)
[2021-07-23] MEDS: chlordiazePOXIDE HCL 25 MG CAPSULE PO SCH ×4 (06:50→22:38)
[2021-07-23] MEDS ORDERED: LISINOPRIL 20 MG TABLET PO SCH (10:00)
[2021-07-23] MEDS: PRENATAL VITAMINS W/ FOLIC ACID TABLET (FP) PO SCH (10:50)
[2021-07-23] MEDS: AMOX TR/POT CLAV 875MG/125MG TABLETS (FP) PO SCH ×2 (10:50→22:38)
[2021-07-23 14:08] LABS: SARS-CoV-2 NAA Not Detected (Not Detected)
[2021-07-23] MEDS: IBUPROFEN 400 MG TABLET (FP) PO PRN (16:39)
[2021-07-23] MEDS: hydrOXYzine PAMOATE 25 MG CAPSULE (FP) PO PRN (16:41)
[2021-07-23] MEDS: PARoxetine HCL 20 MG TABLET PO SCH (18:27)
[2021-07-23] MEDS: THIAMINE HCL 100 MG TABLET (FP) PO SCH (22:38)
[2021-07-23] MEDS: MELATONIN 5 MG TABLETS PO PRN (22:38)
[2021-07-23] MEDS: SUVOREXANT 10 MG TABLET PO PRN (22:42)
[2021-07-24] MEDS ORDERED: chlordiazePOXIDE HCL 10 MG CAPSULE PO PRN
[2021-07-24] MEDS: chlordiazePOXIDE HCL 10 MG CAPSULE PO SCH ×4 (06:42→22:18)
[2021-07-24] MEDS ORDERED: LISINOPRIL 10 MG TABLET PO SCH (10:00)
[2021-07-24] MEDS: AMOX TR/POT CLAV 875MG/125MG TABLETS (FP) PO SCH ×2 (10:35→22:18)
[2021-07-24] MEDS: PRENATAL VITAMINS W/ FOLIC ACID TABLET (FP) PO SCH (10:35)
[2021-07-24] MEDS: PARoxetine HCL 20 MG TABLET PO SCH (10:36)
[2021-07-24] MEDS: hydrOXYzine PAMOATE 25 MG CAPSULE (FP) PO PRN ×2 (18:14→22:18)
[2021-07-24] MEDS: IBUPROFEN 400 MG TABLET (FP) PO PRN (18:16)
[2021-07-24] MEDS: SUVOREXANT 10 MG TABLET PO PRN (22:18)
[2021-07-24] MEDS: THIAMINE HCL 100 MG TABLET (FP) PO SCH (22:18)
[2021-07-25] MEDS ORDERED: chlordiazePOXIDE HCL 10 MG CAPSULE PO SCH (05:00)
[2021-07-25 09:58] VITALS: BP 158/88; PULSE 76; TEMP 98.3
[2021-07-26] MEDS ORDERED: chlordiazePOXIDE HCL 10 MG CAPSULE PO ONE (05:00)
== END 2021-07-25 10:28 | disposition home or self-care (01) | DRG 896 ==
LOC: YASAS 15:33 → Y6N 22:17
PROVIDERS: ADMIT Allergy & Immunology; ATTEND Allergy & Immunology
PROC: HZ2ZZZZ Detoxification Services for Substance Abuse Treatment (ICD-10-PCS; principal; 2021-07-21)
DX: F10.230 Alcohol dependence with withdrawal, uncomplicated (principal); J95.1 Acute pulmonary insufficiency following thoracic surgery; F17.210 Nicotine dependence, cigarettes, uncomplicated; F10.282 Alcohol dependence with alcohol-induced sleep disorder; F10.24 Alcohol dependence with alcohol-induced mood disorder; I10 Essential (primary) hypertension; J44.9 Chronic obstructive pulmonary disease, unspecified; Z62.810 Personal history of physical and sexual abuse in childhood; Z85.3 Personal history of malignant neoplasm of breast; Z85.118 Personal history of other malignant neoplasm of bronchus and lung; Z91.013 Allergy to seafood
CPT/HCPCS: 36415; 71046-TC-FY; 80053; 82140; 82247; 85027; 86780; 93005; 93010; C9803-CS; U0003; U0005

== ENCOUNTER 2022-02-17 19:42 | Inpatient (IN) | payer OTHER ==
[2022-02-17] MEDS ORDERED: ALBUTEROL SO4 2.5/IPRATROPIUM 0.5 INH SOL 3 ML VIAL.NEB. NEB PRN (19:45)
[2022-02-17 21:06] VITALS: BMI 35.2
[2022-02-17] MEDS ORDERED: LOPERAMIDE HCL 2 MG CAPSULE PO PRN (22:34)
[2022-02-17] MEDS ORDERED: IBUPROFEN 400 MG TABLET (FP) PO PRN (22:34)
[2022-02-17] MEDS ORDERED: DICYCLOMINE HCL 10 MG CAPSULE PO PRN (22:34)
[2022-02-17] MEDS ORDERED: P-EPHED 60MG/TRIPROLIDI 2.5MG TABLET PO PRN (22:34)
[2022-02-17] MEDS ORDERED: NICOTINE POLACRILEX 2 MG GUM BUC PRN (22:34)
[2022-02-17] MEDS ORDERED: POLYETHYLENE GLYCOL (HEALTHYLAX) 3350 17 GM PACKET PO PRN (22:34)
[2022-02-17] MEDS ORDERED: IBUPROFEN 600 MG TABLET (FP) PO PRN (22:34)
[2022-02-17] MEDS ORDERED: guaiFENesin 200 MG/10 ML 10 ML UNIT-DOSE CUPS PO PRN (22:34)
[2022-02-17] MEDS ORDERED: MAG HYDROX/AL HYDROX/SIMETH 30 ML UNIT-DOSE CUP PO PRN (22:34)
[2022-02-17] MEDS ORDERED: ACETAMINOPHEN 325 MG TABLET (FP) PO PRN ×2 (22:34)
[2022-02-17] MEDS ORDERED: MAGNESIUM HYDROX 2400MG/30ML ORAL SUSPENSION 30 ML CUP PO PRN (22:34)
[2022-02-17] MEDS ORDERED: BISMUTH SUBSALICYLATE 524 MG/30 ML PO PRN (22:34)
[2022-02-17] MEDS ORDERED: LORazepam 1 MG TABLET PO PRN (22:34)
[2022-02-17] MEDS ORDERED: ONDANSETRON *ODT* 4 MG TABLET SL PRN (22:34)
[2022-02-17] MEDS ORDERED: BENZOCAINE/MENTHOL (CHLORASEPTIC ) LOZENGE MM PRN (22:34)
[2022-02-17] MEDS ORDERED: LORazepam 2 MG TABLET PO SCH (23:00)
[2022-02-17] MEDS ORDERED: ALBUTEROL SO4 HFA INHALER IH PRN (23:55)
[2022-02-18] MEDS ORDERED: LORazepam 1 MG TABLET PO SCH (05:00)
[2022-02-18] MEDS: LORazepam 1 MG TABLET PO SCH ×4 (06:40→21:59)
[2022-02-18] MEDS: PRENATAL VITAMINS W/ FOLIC ACID TABLET (FP) PO SCH (10:11)
[2022-02-18] MEDS: NICOTINE 14 MG/24 HOURS TOPICAL PATCH TD SCH (10:11)
[2022-02-18] MEDS: LISINOPRIL 20 MG TABLET PO SCH (10:11)
[2022-02-18 15:03] LABS: CALCIUM 9.9 mg/dL (8.5-10.1)
[2022-02-18 15:04] LABS: ALBUMIN 3.1 g/dl (3.4-5.0)
[2022-02-18 15:07] LABS: CREATININE 0.8 mg/dL (0.55-1.3)
[2022-02-18 15:09] LABS: BILIRUBIN,TOTAL 2.4 mg/dL (0.2-1); TOT PROT 6.3 g/dl (6.4-8.2)
[2022-02-18 15:10] LABS: HEMATOCRIT 49.9 % (32.4-45.2); HEMOGLOBIN 15.2 GM/dL (10.7-15.3); MCH 28.7 pg (25.7-33.7); MCHC 30.5 g/dl (32.0-36.0); MEAN CELL VOLUME 93.8 fl (80-96); MEAN PLT VOLUME 8.8 fl (7.5-11.1); PLATELET COUNT 214 10^3/uL (134-434); RBC 5.31 M/mm3 (3.60-5.2); RDW 15.9 % (11.6-15.6); WHITE BLOOD COUNT 8.9 K/mm3 (4.0-10.0)
[2022-02-18] MEDS ORDERED: POTASSIUM CHLORIDE ORAL LIQUID 20 MEQ/15 ML PO ONE ×2 (15:33→18:45)
[2022-02-18] MEDS: METHOCARBAMOL 500 MG TABLET PO PRN (18:16)
[2022-02-18] MEDS: MELATONIN 5 MG TABLETS PO SCH (21:58)
[2022-02-18] MEDS: THIAMINE HCL 100 MG TABLET (FP) PO SCH (21:58)
[2022-02-19] MEDS ORDERED: LORazepam 1 MG TABLET PO SCH (05:00)
[2022-02-19] MEDS ORDERED: LORazepam 0.5 MG TABLET PO SCH (05:39)
[2022-02-19] MEDS: LORazepam 0.5 MG TABLET PO SCH ×4 (06:15→22:15)
[2022-02-19] MEDS: NICOTINE 14 MG/24 HOURS TOPICAL PATCH TD SCH (10:44)
[2022-02-19] MEDS: LISINOPRIL 20 MG TABLET PO SCH (10:44)
[2022-02-19] MEDS: PRENATAL VITAMINS W/ FOLIC ACID TABLET (FP) PO SCH (10:44)
[2022-02-19] MEDS: THIAMINE HCL 100 MG TABLET (FP) PO SCH (22:14)
[2022-02-19] MEDS: METHOCARBAMOL 500 MG TABLET PO PRN (22:15)
[2022-02-19] MEDS: MELATONIN 5 MG TABLETS PO SCH (22:15)
[2022-02-19] MEDS: PARoxetine HCL 20 MG TABLET PO SCH (22:52)
[2022-02-20] MEDS ORDERED: LORazepam 0.5 MG TABLET PO PRN
[2022-02-20] MEDS: LORazepam 0.5 MG TABLET PO SCH ×4 (06:06→22:09)
[2022-02-20] MEDS: NICOTINE 14 MG/24 HOURS TOPICAL PATCH TD SCH (10:32)
[2022-02-20] MEDS: PRENATAL VITAMINS W/ FOLIC ACID TABLET (FP) PO SCH (10:32)
[2022-02-20] MEDS: LISINOPRIL 20 MG TABLET PO SCH (10:32)
[2022-02-20 13:40] VITALS: RESP 18
[2022-02-20] MEDS: METHOCARBAMOL 500 MG TABLET PO PRN (16:02)
[2022-02-20 18:16] LABS: URINE APPEARANCE CLEAR; URINE BILIRUBIN NEGATIVE (NEGATIVE); URINE COLOR YELLOW; URINE GLUCOSE (UA) NEGATIVE (NEGATIVE); URINE KETONE NEGATIVE (NEGATIVE); URINE LEUK ESTERASE NEGATIVE (NEGATIVE); URINE NITRITE NEGATIVE (NEGATIVE); URINE PROTEIN NEGATIVE (NEGATIVE); URINE UROBILINOGEN 0.2 mg/dL (0.2-1.0)
[2022-02-20] MEDS: PARoxetine HCL 20 MG TABLET PO SCH (22:08)
[2022-02-20] MEDS: MELATONIN 5 MG TABLETS PO SCH (22:08)
[2022-02-20] MEDS: THIAMINE HCL 100 MG TABLET (FP) PO SCH (22:09)
[2022-02-21] MEDS ORDERED: LORazepam 0.5 MG TABLET PO ONE (05:00)
[2022-02-21] MEDS: LISINOPRIL 20 MG TABLET PO SCH (09:55)
[2022-02-21] MEDS: PRENATAL VITAMINS W/ FOLIC ACID TABLET (FP) PO SCH (09:55)
[2022-02-21] MEDS: NICOTINE 14 MG/24 HOURS TOPICAL PATCH TD SCH (09:56)
[2022-02-21 11:18] VITALS: BP 140/88; PULSE 86; TEMP 98
== END 2022-02-21 10:39 | disposition home or self-care (01) | DRG 897 ==
LOC: YASAS 19:42 → Y3N 23:01
PROVIDERS: ADMIT Allergy & Immunology; ATTEND Surgery
PROC: HZ2ZZZZ Detoxification Services for Substance Abuse Treatment (ICD-10-PCS; principal; 2022-02-17)
DX: F10.230 Alcohol dependence with withdrawal, uncomplicated (principal); F17.210 Nicotine dependence, cigarettes, uncomplicated; F10.24 Alcohol dependence with alcohol-induced mood disorder; I10 Essential (primary) hypertension; J41.0 Simple chronic bronchitis; Z62.810 Personal history of physical and sexual abuse in childhood; Z85.118 Personal history of other malignant neoplasm of bronchus and lung; Z85.3 Personal history of malignant neoplasm of breast; Z86.11 Personal history of tuberculosis; Z91.410 Personal history of adult physical and sexual abuse; Z91.013 Allergy to seafood
CPT/HCPCS: 36415; 80053; 81003; 84132; 85027; 86780; C9803-CS; Q0162; U0003; U0005